=== PATIENT | female | born 1955 | race Caucasian/White ===

== ENCOUNTER → 2017-12-19 08:15 | Outpatient (CLI) | payer MEDICARE, SELFPAY ==
--- NOTE | 2017-12-19 | DI.NM.S_ITS ---
PROCEDURE: NM GASTRIC EMPTYING STUDY RADIOPHARMACEUTICAL: 1.0 mCi Tc-99m sulfur colloid in an egg sandwich. INDICATIONS: NAUSEA AND VOMITING TECHNIQUE: A Tc-99m labeled sulfur colloid labeled egg sandwich or oatmeal was served to the patient. Anterior and posterior planar images of the abdomen were obtained at 0 minutes and 30 minutes, then at hourly intervals up to 4 hours. The patient was upright and ambulating during the interval. COMPARISON: None. FINDINGS: The stomach has normal size, morphology, and position. There is normal emptying of solid gastric contents from the stomach by visual inspection. No gastroesophageal reflux is visualized. The percentage of tracer retained at specific time points are as follows: Time point Percent gastric retention Normal range 33 minutes 68% 70% or more at 30 min 62 minutes 31% 30% to 90% at 1 hour 2 hours 2% 60% or less 3 hours - 30% or less 4 hours - 10% or less IMPRESSION: Normal gastric empties study. Dictated by: Navdeep Miller M.D. on 12/19/2017 at 11:42 Approved by: Navdeep Miller M.D. on 12/19/2017 at 11:48
== END ==
PROVIDERS: PCP Internal Medicine Interventional Cardiology; Visit Provider Internal Medicine Endocrinology, Diabetes & Metabolism
DX: R11.2 Nausea with vomiting, unspecified (principal)
CPT/HCPCS: 78264; A9541

== ENCOUNTER → 2019-04-19 13:12 | Outpatient (CLI) | payer MEDICARE, OTHER, SELFPAY ==
--- NOTE | 2019-04-19 | DI.RAD.S_ITS ---
PROCEDURE: XR KUB INDICATIONS: Stones TECHNIQUE: One view of the abdomen acquired. COMPARISON: Outside Film, CT, CT CHEST ABDOMEN WITHOUT CONTRAST, 01/07/2019, 4:25. Outside Film, CT, CT KUB, 01/21/2019, 13:46. [facility], CR, XR ABDOMEN 1 VIEW, 02/14/2019, 8:27. [facility], CR, XR ABDOMEN 1 VIEW, 03/04/2019, 15:01. FINDINGS: Surgical changes and devices: There has been interval removal of previous right ureteral vesicular stent. Cholecystectomy clips are noted. Bowel: Bowel gas pattern is normal. Soft tissues: There are several punctate ill-defined areas of hyperdensity identified along what appears to be the anterior medial aspect of the right renal shadow. These appear to correlate to prior renal calcifications. Visualized solid organ contours appear normal in size. Bones: No suspicious bony lesions. IMPRESSION: Punctate calcifications noted overlying the inferior pole of the right renal shadow corresponding to prior exams. Dictated by: Elham De Los Santos M.D. on 04/19/2019 at 16:21 Approved by: Elham De Los Santos M.D. on 04/19/2019 at 16:26
[2019-04-19 15:08] LABS: Calcium 9.2 mg/dL (8.4-10.2); Uric Acid 3.4 mg/dL (2.5-6.2)
[2019-04-23 14:14] LABS: Parathyroid Hormone Int 94 pg/mL (14-64)
== END ==
PROVIDERS: PCP Internal Medicine Interventional Cardiology; Visit Provider Specialist
DX: N20.0 Calculus of kidney (principal)
CPT/HCPCS: 36415; 74018; 82310; 83970; 84550

== ENCOUNTER → 2024-08-28 15:03 | Outpatient (CLI) | payer MEDICARE, OTHER, SELFPAY ==
--- NOTE | 2024-08-28 15:11 | DI.RAD.S_ITS ---
PROCEDURE: XR CHEST 2V INDICATIONS: Shortness of breath TECHNIQUE: 2 views of the chest were acquired. COMPARISON: None. FINDINGS: Heart, mediastinum and pulmonary vascular: Heart is equivocally enlarged. Increased density in the right mediastinal region is commonly seen and typically indicates enlarged thyroid versus ectatic brachiocephalic artery. Mediastinum is otherwise normal. Pulmonary vascular is mildly distended Lungs: Equivocal peribronchovascular edema Pleural spaces: Normal-no effusions or pneumothorax. Bones and soft tissues: Normal IMPRESSION: Mild CHF or volume overload Dictated by: Beni Buitrago M.D. on 08/29/2024 at 11:22 Approved by: Beni Buitrago M.D. on 08/29/2024 at 11:24
== END ==
LOC: DI 15:09
PROVIDERS: PCP Internal Medicine Interventional Cardiology; Referring Provider Student in an Organized Health Care Education/Training Program; Visit Provider Student in an Organized Health Care Education/Training Program
DX: J98.4 Other disorders of lung (principal); E66.2 Morbid (severe) obesity with alveolar hypoventilation; J96.11 Chronic respiratory failure with hypoxia
CPT/HCPCS: 71046